=== PATIENT | female | born 1945 | race Caucasian/White ===

== ENCOUNTER 2021-11-09 13:15 | Outpatient (CLI) | payer MEDICARE, SELFPAY ==
--- NOTE | 2021-11-09 13:30 | CRLHL7_ITS ---
For Patients: As a result of the Century Cures Act, medical imaging exams and procedure reports are released immediately into your electronic medical record. You may view this report before your referring provider. If you have questions, please contact your health care provider. DXA BONE MINERAL DENSITY STUDY Current height (in): 66. Weight (lbs): 155. Menopause age: 40. Ethnicity: White. 1. Have you had a previous hip or vertebral fracture? No. 2. Have you had any fractures during your adult life which did not result from significant trauma (e.g., auto accident)? Yes. 3. Did either of your parents have a hip fracture? No. 4. Do you smoke? No. 5. Have you ever taken Glucocorticoids? No. 6. Do you have rheumatoid arthritis? No. 7. Do you have secondary osteoporosis? No. 8. Do you drink 3 or more alcoholic drinks per day? No. 9. Are you being treated for osteoporosis? No. 10. Have you ever taken any of the following medications: Actonel, Evista, Fosamax, Miacalcin, Reclast, Boniva, Forteo, HRT (i.e. estrogen/hormone therapy), Protelos, Prolia, Vitamin D, Calcium, other ??? please specify. ANSWER: Yes, Fosamax, Vitamin D, and calcium. 11. Do you have any of the following medical conditions: Anorexia or bulimia, asthma or emphysema, end stage renal disease, hyperparathyroidism, any seizure disorders, cancer, inflammatory bowel diseases, hysterectomy, other ??? please specify. ANSWER: Yes, hysterectomy. 12. What was your maximum height (inches)? 66. 13. Do you perform weight bearing exercise regularly? Yes. 14. Do you regularly consume dairy products? Yes. 15. Do you drink caffeinated beverages? No. If female: 16. At what age did your period start? 12. 17. Are you premenopausal? No. 18. How many full term pregnancies have you had? 2. 19. Have you ever missed your period for more than 6 months in a row (not including or menopause)? No. TECHNIQUE: Bone mineral density study was performed using the [employer]. FINDINGS: The results of the study expressed as bone mineral density (BMD) are as follows: Lumbar spine L1 to L4: BMD: 1.055 g/cm2. T-score: 0.1. Z-score: 2.7 Neck Left: BMD: 0.699 g/cm2. T-score: -1.3. Z-score: 0.9 Right: BMD: 0.660 g/cm2. T-score: -1.7. Z-score: 0.5 Total Left: BMD: 0.856 g/cm2. T-score: -0.7. Z-score: 1.3 Right: BMD: 0.857 g/cm2. T-score: -0.7. Z-score: 1.3 IMPRESSION: Osteopenia. *Comparison exams done prior to 07/2019 were performed on different unit, [employer]. COMPARISON: Compared with scan of 06/18/2017, the bone mineral density has increased by 0.0 percent at the spine and increased by 4.4 percent at the hip. FRAX 10-year Fracture Risk Major Osteoporotic Fracture: 20percent Hip Fracture: 4.4 percent Reported Risk Factors: [place] () Neck BMD=0.660, BMI=25.0, previous fracture Neetu Chu M.D. Diagnostic/Breast Radiologist [email or web address] SAY/gabbi seo/Dictated by: Neetu Chu MD @ 11/09/2021 4:48:00 PM (Electronically Signed)
--- NOTE | 2021-11-09 14:00 | CRLHL7_ITS ---
For Patients: As a result of the Cures Act, medical imaging exams and procedure reports are released immediately into your electronic medical record. You may view this report before your referring provider. If you have questions, please contact your health care provider. BILATERAL DIGITAL SCREENING MAMMOGRAM WITH TOMOSYNTHESIS AND COMPUTER-AIDED DETECTION CLINICAL HISTORY: Routine screening exam. COMPARISON: 09/20/2020, 09/16/2027, 12/17/2017. TECHNIQUE: Digital mammogram in CC and MLO projections including computer-aided detection (CAD). Tomosynthesis utilized. BREAST COMPOSITION: The breasts are heterogeneously dense, which may obscure small masses. FINDINGS: RIGHT Breast: No suspicious findings. LEFT Breast: Asymmetric density within the lower inner quadrant LEFT breast 6 cm from the nipple. IMPRESSION: LEFT breast asymmetry/mass. RECOMMENDATIONS: Additional mammographic views of the LEFT breast including 3D spot compression CC/MLO. LEFT breast ultrasound may also be required. The [facility] will contact the patient for follow-up. BI-RADS Category 0: Incomplete: Need Additional Imaging Evaluation and/or Prior Mammograms for Comparison A lay language report of this examination will be provided to the patient. Dictated by Westley Narayanan MD @ 11/10/2021 8:53:18 AM jj/Dictated by: Westley Narayanan MD @ 11/10/2021 8:53:00 AM (Electronically Signed)
== END 2021-11-09 13:16 | disposition home or self-care (01) ==
LOC: RAD 13:18
PROVIDERS: PCP Physician Assistant Medical; Visit Provider Physician Assistant Medical
DX: Z12.31 Encounter for screening mammogram for malignant neoplasm of breast (principal); N63.20 Unspecified lump in the left breast, unspecified quadrant; R92.2 Inconclusive mammogram; Z13.820 Encounter for screening for osteoporosis; M85.89 Other specified disorders of bone density and structure, multiple sites
CPT/HCPCS: 77063; 77067; 77080

== ENCOUNTER 2021-11-16 07:54 | Outpatient (CLI) | payer MEDICARE, SELFPAY ==
--- NOTE | 2021-11-16 07:45 | CRLHL7_ITS ---
For Patients: As a result of the Cures Act, medical imaging exams and procedure reports are released immediately into your electronic medical record. You may view this report before your referring provider. If you have questions, please contact your health care provider. DIGITAL DIAGNOSTIC LEFT MAMMOGRAM USING TOMOSYNTHESIS AND COMPUTER-AIDED DETECTION LEFT BREAST ULTRASOUND CLINICAL HISTORY: LEFT breast mass/asymmetry. COMPARISON: 11/09/2021 TECHNIQUE: Digital LEFT mammogram in 2 projections. Tomosynthesis and computer-aided detection were used. Real-time ultrasound imaging of LEFT breast with imaging documentation. Scanning was performed by both the technologist and the radiologist. BREAST COMPOSITION: The breasts are heterogeneously dense, which may obscure small masses. FINDINGS: 3D spot-compression CC and 3D spot-compression MLO LEFT breast mammogram submitted. Decreased conspicuity of previously noted density within the posterior LEFT breast lower inner quadrant. No architectural distortion or suspicious calcifications. Detail targeted LEFT breast ultrasound in the lower inner quadrant performed 2-8 cm from the nipple. Normal fibroglandular tissue noted. No evidence malignancy. No fibrocystic change. IMPRESSION: No evidence of malignancy. RECOMMENDATIONS: Annual bilateral screening mammography. Results and recommendations discussed with the patient. BI-RADS Category 2: Benign A lay language report of this examination will be provided to the patient. Dictated by Westley Narayanan MD @ 11/16/2021 8:45:11 AM PT/Dictated by: Westley Narayanan MD @ 11/16/2021 8:45:00 AM (Electronically Signed)
--- NOTE | 2021-11-16 08:15 | CRLHL7_ITS ---
For Patients: As a result of the Century Cures Act, medical imaging exams and procedure reports are released immediately into your electronic medical record. You may view this report before your referring provider. If you have questions, please contact your health care provider. PLEASE SEE LEFT DIAGNOSTIC MAMMOGRAM OF SAME DAY. CRL:porfirio PT/Dictated by: Westley Narayanan MD @ 11/16/2021 8:45:00 AM (Electronically Signed)
== END 2021-11-16 07:55 | disposition home or self-care (01) ==
LOC: MAMMO 07:54
PROVIDERS: PCP Physician Assistant Medical; Visit Provider Physician Assistant Medical
DX: N63.20 Unspecified lump in the left breast, unspecified quadrant (principal); R92.8 Other abnormal and inconclusive findings on diagnostic imaging of breast
CPT/HCPCS: 76642; 77065; G0279

== ENCOUNTER 2021-11-21 10:55 | Outpatient (CLI) | payer MEDICARE, SELFPAY ==
[2021-11-21 13:33] LABS: Albumin* 4.3 g/dL (3.3-5.0); Chloride* 102 mmol/L (96-114); Sodium* 136 mmol/L (135-149)
[2021-11-21 13:34] LABS: Potassium* 3.9 mmol/L (3.6-5.1)
[2021-11-21 13:35] LABS: Cholesterol* 177 mg/dL (90-199)
[2021-11-21 13:36] LABS: Alanine Aminotransferase* 20 U/L (4-35); Alkaline Phosphatase* 66 U/L (40-150); Aspartate Amino Transferase* 30 U/L (12-35); Bilirubin Total* 1.2 mg/dL (0.1-1.5); Blood Urea Nitrogen* 19 mg/dL (7-30); Carbon Dioxide* 26 mmol/L (20-32); Creatinine* 0.9 mg/dL (0.5-1.5); Estimated Glomerular Filt Rate 65 ml/min; Glucose* 101 mg/dL (60-115); Total Protein* 6.5 g/dL (6.0-8.3); Triglycerides* 162 mg/dL (40-149)
[2021-11-21 13:37] LABS: Calcium* 9.5 mg/dL (8.4-10.6); HDL Cholesterol* 63 mg/dL (>=50); LDL Cholesterol Calculated 82 mg/dL (<100)
== END 2021-11-21 10:56 | disposition home or self-care (01) ==
PROVIDERS: PCP Physician Assistant Medical; Visit Provider Physician Assistant Medical
DX: Z00.00 Encounter for general adult medical examination without abnormal findings (principal); E78.5 Hyperlipidemia, unspecified; I10 Essential (primary) hypertension
CPT/HCPCS: 80053; 80061; 84443

== ENCOUNTER 2022-08-30 06:30 | Day surgery (SDC) | payer MEDICARE, SELFPAY ==
[2022-08-30] VITALS (14 sets, daily range): BP systolic 112–140; BP diastolic 55–61; PULSE 43–49; RESP 12–20; TEMP 36.3–36.4; O2SAT 95–99; BMI 25.0
--- NOTE | 2022-08-30 06:52 | SUR.PREOP ---
SAME DAY SURGERY LOCAL INJECTION SITE VERIFICATION WAS PERFORMED BY SURGEON/PA AND PATIENT PRIOR TO LOCAL ANESTHETIC BEING INJECTED TO OPERATIVE SITE.
[2022-08-30] MEDS: BUPIVACAINE 0.5% 30 ML INJECTION (07:00)
[2022-08-30] MEDS: BACITRACIN OINTMENT BULK TUBE 1 APPLIC TOPICAL (08:21)
--- NOTE | 2022-08-30 11:41 | PM.ORPRC ---
Procedure Note Date of procedure: 08/30/22 Procedure: PREOPERATIVE DIAGNOSIS: 1. Right hand Dupuytren's contracture involving the small finger primarily PIP joint but extending to the MCP joint POSTOPERATIVE DIAGNOSIS: 1. Right hand Dupuytren's contracture involving the small finger primarily PIP joint but extending to the MCP joint PROCEDURE: 1. Right hand open partial palmar fasciectomy of Dupuytren's contracted tissue 2. Right small finger PIP joint manipulation under anesthesia. SURGEON: Teo Craig MD. POWER GENERATION TECHNICIAN: None. ANESTHESIA: Local anesthetic 1% lidocaine plain and 0.5% Marcaine plain-10 mL total IMPLANTS: None TOURNIQUET: None COMPLICATIONS: None evident INDICATIONS: The patient is a pleasant 77-year-old female who has experienced right hand Dupuytren's contractures primarily involving the right small finger. This has resulted in PIP joint flexion contracture of approximately 40+ degrees. Nonoperative management has been tried but unsuccessful. Given the failure of nonoperative management, and how this affects daily life, surgery was recommended. DESCRIPTION OF PROCEDURE: Following a thorough discussion of risks, benefits, and alternatives consent was obtained and the operative extremity/digit was marked. After sterile ChloraPrep prep of the right hand and sterile draping, Joce type incisions were made from the distal digital crease of the small finger to the distal palmar crease. Fasciocutaneous flaps were mobilized. Caution was taken along the ulnar border of the digit were the Dupuytren's cord was palpated. The ulnar digital nerve and artery were identified, mobilized, and protected throughout the case. The scar tissue was somewhat intertwined with the ulnar digital nerve, but again this was protected while mobilizing the scar. The scar extended from the hypothenar muscle in the ulnar part of the hand distally along the ulnar border of the digit approaching the D IP joint region. The scar was excised along the entire course EN bloc. The early part of the dissection was performed with an Esmarch wrap around the distal forearm for hemostasis. This was released mid dissection to ensure adequate identification of the ulnar digital artery and protection of this neurovascular structures throughout the case. The PIP joint remained with a 20 degree flexion contracture. Manipulation under anesthesia of the small finger PIP joint was then performed and the finger was able to achieve less than 5? of flexion contracture following this. Thorough irrigation normal saline was performed. Closure performed with interrupted simple sutures of 4-0 nylon followed by dressings and a splint to help with maintenance of extension of the PIP joint. PLAN: 1. Encourage elevation of the operative extremity. 2. Range of motion of the operative extremity/digits as tolerated. 3. Ibuprofen and/or acetaminophen as needed for pain. 4. Follow-up early next week for splint removal, OT evaluation and [employer] splint fabrication p.r.n. to help assist with small finger PIP joint extension.
== END 2022-08-30 08:52 | disposition home or self-care (01) ==
PROVIDERS: PCP Physician Assistant Medical; Visit Provider Orthopaedic Surgery Sports Medicine
PROC: (CPT 25000; principal; 2022-08-30 07:30)
DX: M72.0 Palmar fascial fibromatosis [Dupuytren] (principal)
CPT/HCPCS: 26123; A4580; J0665

== ENCOUNTER 2022-09-06 13:44 | Outpatient (RCR) | payer MEDICARE, SELFPAY ==
--- NOTE | 2022-09-06 16:42 | OT.OPOE ---
OT Outpatient Ortho Eval OT Outpatient Ortho Eval* Start: 09/05/22 18:07 Freq: Status: Active Protocol: Document 09/06/22 12:51 AMB (Rec: 09/06/22 16:39 AMB [id number]) E-signed By Nicole Salcedo, OTR/L, CLT, FISH WARDEN OT OP Ortho Eval Details Complexity Complexity Low Insurance Information Insurance Information Medicare B Outpatient History/Precautions Current Condition/Medical Diagnosis Referring Provider Christiano Mcmillan PA-C Treatment Diagnosis RUE 5th digit fasciectomy of Dupuytren's contracture Date of Onset 08/30/22 Medical Conditions HTN,Metal Implants Other Conditions PMH: (copied from ortho chart) Active Problems (Reviewed @ 10:54 by Minerva Javier ~ LAT ATC) Status post Dupuytren's fasciectomy (Acute) 6 days postoperative right hand open partial palmar fasciectomy of Dupuytren's contracture tissue, and right small finger PIP joint manipulation under anesthesia (surgery date: 08/30/2022) Z98.890 - Other specified postprocedural states (ICD-10) Closed right humeral fracture (Acute) S42.301A - Unspecified fracture of shaft of humerus, right arm, initial encounter for closed fracture (ICD-10) Trigger thumb, left thumb ( Acute) M65.312 - Trigger thumb, left thumb (ICD-10) Dupuytren's contracture of right hand (Acute) Right small finger Dupuytren's contracture 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] (ICD- 10) Hyperlipidemia (Acute 01/25/09 ) E78.5 - Hyperlipidemia, unspecified (ICD-10) Hypertension (Acute 01/25/09) I10 - Essential (primary) hypertension (ICD-10) Osteopenia (Acute) DEXA 11/10- osteopenia but declined treatment due to swallowing concerns M85.80 - Other specified disorders of bone density and structure, unspecified site ( ICD-10) Vocal cord dysfunction (Acute) J38.3 - Other diseases of vocal cords (ICD-10) Psoriasis (Acute) L40.9 - Psoriasis, unspecified (ICD-10) Hammer toe (Acute 03/08/10) M20.40 - Other hammer toe(s) ( acquired), unspecified foot ( ICD-10) Surgical History (Reviewed @ 10:54 by Minerva Javier ~ LAT ATC) Status post open reduction with internal fixation (ORIF) of fracture of ankle (1999) Z98.890 - Other specified postprocedural states (ICD-10) Z87.81 - Personal history of ( healed) traumatic fracture ( ICD-10) History of tonsillectomy (1950 ) Z90.89 - Acquired absence of other organs (ICD-10) History of hysterectomy (1985) Z90.710 - Acquired absence of both cervix and uterus (ICD-10 ) History of discectomy Z98.890 - Other specified postprocedural states (ICD-10) Medical/Functional History Medical History Reviewed Yes Ortho Subjective Subjective Subjective Pt states she is feeling pretty good, had her surgical dressing removed yesterday and will have sutures removed next week. Pt has minimal pain and is pleased at how straight her finger is. Pt states her pain is 0-1/10, mild ache in her right 5th digit. Goniometric Comments Goniometric Comments Goniometric Comments 09/06/22 Pt demonstrates full AROM in BUE with the exception of the RUE 4th and 5th digits . AROM of the RUE 5th digit MP is 0-70, PIP is -10-45, DIP is 0-10. AROM of the RUE 4th digit MP is 0-60, PIP is 0-70, DIP is 0-50. OT Problems Problems Problems Decreased Strength,Decreased Range of Motion,Decreased Dexterity,Pain,Decreased Coordination,Lifting,Gripping, Pinching Other Problems Writing,Opening Containers Patient Potential Good Assessment Assessment Assessment Pt is a very pleasant 77yo female reporting to OT 1 week s/p RUE palmar fasciectomy of Dupuytren's contracture of the 5th digit. Sutures are in place, no drainage noted, no s /s of infection. Pt demonstrates mild pain, limited ROM and weakness in the RUE. Very mild swelling is appreciated along the palmar side of her hand. Pt is currently limited in all ADLs and IADLs that require use of her RUE (dominant hand) . Pt will benefit from skilled OT intervention for custom splinting to maintain tissue integrity and flexibility / reduce risk for return of contracture as well as HEP, scar tissue management and eventually strengthening in order to restore full, pain -free use of her RUE. Occupational Therapy Treatment Plan - OP Potential Rehabilitation Potential Good Set Goals Goals Set with Patient Yes Goals Goals 1. Pt will be independent and compliant with HEP including custom splint and exs / scar management in order to resume full, pain-free use of the involved UE. 3 weeks 2. Pt will demonstrate full, pain-free AROM of the involved UE in order to improve ability to grasp and hold. 6 weeks 3. Pt will demonstrate pain- free project asst and pinch strength comparable to the uninvolved side in order to improve functional grasp, hold, reach, and lifting ability needed to complete self-care, leisure tasks, and work activities. 8 weeks. Target Date 12/07/22 Treatment Plan Treatment Plan Evaluation,Edema Control,Joint Mobilization,Manual Therapy, Splinting,Ultrasound,Wound Care/Scar Management, Therapeutic Exercise, Therapeutic Activities,Self Care/Home Management,Allergist/Immunologist Training,Education Expected Frequency 1-2x Week Expected Duration 8-10 Weeks Home Program Home Program Home Program Initiated Home Program Specifics 09/06/22 Initiated differential tendon glides. Certification Certification I Certify That: Therapy Services Provided, Therapy Plan Established, Therapy Plan Reviewed Recertification Information Recertification Information Initial Certification Date 09/06/22 Recertification Due Date 12/05/22 Reasons to Continue Skilled Therapy Initiated OT today for custom splinting as well as ROM / HEP following RUE palmar fasciectomy of Dupuytren's contracture of the 5th digit. Rehabilitation Potential Good Continued Plan of Care and Interventions Please see above. Provider Signature Shows Agreement With POC & Medical Necessity Physician Comment/Change Comment or Changes Physician NPI Number #
== END 2022-10-20 15:32 | disposition home or self-care (01) ==
PROVIDERS: PCP Physician Assistant Medical; Visit Provider Physician Assistant Surgical
DX: M72.0 Palmar fascial fibromatosis [Dupuytren] (principal); Z51.89 Encounter for other specified aftercare
CPT/HCPCS: 97165; L3913

== ENCOUNTER 2022-11-16 10:09 | Outpatient (CLI) | payer MEDICARE, SELFPAY ==
--- NOTE | 2022-11-16 10:15 | CRLHL7_ITS ---
For Patients: As a result of the Cures Act, medical imaging exams and procedure reports are released immediately into your electronic medical record. You may view this report before your referring provider. If you have questions, please contact your health care provider. BILATERAL SCREENING MAMMOGRAM WITH COMPUTER-AIDED DETECTION AND TOMOSYNTHESIS TECHNIQUE: CC and MLO views were obtained. These mammographic images have been obtained using full-field digital technique. These mammographic images were interpreted with the benefit of computer-aided detection. Breast Tomosynthesis was used in this interpretation. COMPARISON FILM: 11/09/21, 09/20/20, 09/16/19. FINDINGS: The breasts are heterogeneously dense, which may obscure small masses IMPRESSION: There is no radiographic evidence for malignancy. ASSESSMENT: BI-RADS Category 1: Negative RECOMMENDATION: Routine screening mammogram in 1 year. A lay language report of this examination will be provided to the patient. Westley Narayanan M.D. Diagnostic Radiologist [email or web address] VERONICA/viri / be/Dictated by: Westley Narayanan MD @ 11/16/2022 1:21:00 PM (Electronically Signed)
== END 2022-11-16 10:10 | disposition home or self-care (01) ==
LOC: MAMMO 10:10
PROVIDERS: PCP Physician Assistant Medical; Visit Provider Physician Assistant Medical
DX: Z12.31 Encounter for screening mammogram for malignant neoplasm of breast (principal); R92.2 Inconclusive mammogram
CPT/HCPCS: 77063; 77067

== ENCOUNTER 2022-11-23 16:07 | Outpatient (CLI) | payer MEDICARE, SELFPAY | END 2022-11-23 16:08 | disposition home or self-care (01) | PROVIDERS: PCP Physician Assistant Medical; Visit Provider Physician Assistant Medical | DX: E78.2 Mixed hyperlipidemia (principal) | CPT/HCPCS: 80053; 80061 ==

== ENCOUNTER 2023-06-06 13:00 | Outpatient (RCR) | payer MEDICARE, SELFPAY | END 2023-08-21 13:41 | disposition home or self-care (01) | PROVIDERS: PCP Physician Assistant Medical; Visit Provider Family Medicine | DX: M54.50 Low back pain, unspecified (principal); Z51.89 Encounter for other specified aftercare | CPT/HCPCS: 97012; 97032; 97110; 97140; 97161 ==

== ENCOUNTER 2023-12-11 12:18 | Outpatient (CLI) | payer MEDICARE, SELFPAY | END 2023-12-11 12:19 | disposition home or self-care (01) | PROVIDERS: PCP Physician Assistant Medical; Visit Provider Physician Assistant Medical | DX: Z00.00 Encounter for general adult medical examination without abnormal findings (principal); E78.5 Hyperlipidemia, unspecified; I10 Essential (primary) hypertension; R53.83 Other fatigue | CPT/HCPCS: 80053; 80061; 84443 ==

== ENCOUNTER 2024-06-12 13:49 | Outpatient (CLI) | payer MEDICARE, SELFPAY ==
--- NOTE | 2024-06-12 14:00 | CRLHL7_ITS ---
For Patients: As a result of the Century Cures Act, medical imaging exams and procedure reports are released immediately into your electronic medical record. You may view this report before your referring provider. If you have questions, please contact your health care provider. INDICATION: SCREENING MAMMOGRAM, ASYMPTOMATIC 78 YEAR OLD FEMALE COMPARISON: 11/16/22, 11/09/21, 09/20/20 TECHNIQUE: CC and MLO views were obtained. These mammographic images have been obtained using full-field digital technique. These mammographic images were interpreted with the benefit of computer aided detection and tomosynthesis. BREAST COMPOSITION: The breasts are heterogeneously dense, which may obscure small masses. FINDINGS: No suspicious findings. ASSESSMENT: BI-RADS 2 Benign RECOMMENDATION: Annual screening mammogram. A lay language report of this examination will be provided to the patient. Dictated by: Westley Narayanan MD @ 06/13/2024 12:43:58 (Electronically Signed)
--- NOTE | 2024-06-12 14:30 | CRLHL7_ITS ---
For Patients: As a result of the Century Cures Act, medical imaging exams and procedure reports are released immediately into your electronic medical record. You may view this report before your referring provider. If you have questions, please contact your health care provider. XR DXA Bone Mineral Density (BMD) Reason for exam: Disorder of the bone. Postmenopausal. Current height (in): 66. Weight (lb): 155. Menopause age: 40. Ethnicity: White. 1. Have you had a previous hip or vertebral fracture? No. 2. Have you had any fractures during your adult life which did not result from significant trauma (e.g., auto accident)? Yes. 3. Did either of your parents have a hip fracture? No. 4. Do you smoke? No. 5. Have you ever taken Glucocorticoids? No. 6. Do you have rheumatoid arthritis? No. 7. Do you have secondary osteoporosis? No. 8. Do you drink 3 or more alcoholic drinks per day? No. 9. Are you being treated for osteoporosis? No. 10. Have you ever taken any of the following medications: Actonel, Evista, Fosamax, Miacalcin, Reclast, Boniva, Forteo, HRT (i.e., estrogen/hormone therapy), Protelos, Prolia, Vitamin D, Calcium, other ??? please specify. ANSWER: Yes, Fosamax (i.e., alendronate) and calcium. 11. Do you have any of the following medical conditions: Anorexia or bulimia, asthma or emphysema, end stage renal disease, hyperparathyroidism, any seizure disorders, cancer, inflammatory bowel diseases, hysterectomy, other ??? please specify. ANSWER: Yes, hysterectomy. 12. What was your maximum height (inches)? 66. 13. Do you perform weight bearing exercise regularly? No. 14. Do you regularly consume dairy products? Yes. 15. Do you drink caffeinated beverages? No. 16. At what age did your period start? 12. 17. Are you premenopausal? No. 18. How many full-term pregnancies have you had? 2. 19. Have you ever missed your period for more than 6 months in a row (not including or menopause)? No. TECHNIQUE: Bone mineral density study was performed using the [employer]. FINDINGS: The results of the study expressed as bone mineral density (BMD) are as follows: Lumbar spine L1 to L4: BMD: 1.070 g/cm2. T-score: 0.2. Z-score: 2.9 Neck Left: BMD: 0.718 g/cm2. T-score: -1.2. Z-score: 1.2 Right: BMD: 0.667 g/cm2. T-score: -1.6. Z-score: 0.7 Total Left: BMD: 0.850 g/cm2. T-score: -0.8. Z-score: 1.3 Right: BMD: 0.822 g/cm2. T-score: -1.0. Z-score: 1.1 IMPRESSION: Osteopenia. *Comparison exams done prior to 07/2019 were performed on different unit, [employer] COMPARISON: Compared with scan of 11/09/2021, the bone mineral density has increased by 1.4 percent at the spine and decreased by 2.4 percent at the hip. Compared with scan of 06/18/2017, the bone mineral density has no change at 0.0 percent at the spine and increased by 4.4 percent at the hip. FRAX 10-year Fracture Risk Major Osteoporotic Fracture: 21% Hip Fracture: 4.9% Reported Risk Factors: [place] () Neck BMD=0.667, BMI=25.0, previous fracture Westley Narayanan M.D. Diagnostic Radiologist [email or web address] VERONICA/gabbi seo/Dictated by: Westley Narayanan MD @ 06/12/2024 3:26:00 PM (Electronically Signed)
== END 2024-06-12 13:50 | disposition home or self-care (01) ==
LOC: MAMMO 13:50
PROVIDERS: PCP Physician Assistant Medical; Visit Provider Physician Assistant Medical
DX: Z12.31 Encounter for screening mammogram for malignant neoplasm of breast (principal); R92.333 Mammographic heterogeneous density, bilateral breasts; M85.89 Other specified disorders of bone density and structure, multiple sites; Z78.0 Asymptomatic menopausal state
CPT/HCPCS: 77063; 77067; 77080

== ENCOUNTER 2025-01-07 08:45 | Outpatient (CLI) | payer MEDICARE, SELFPAY | END 2025-01-07 08:46 | disposition home or self-care (01) | LOC: RAD 08:47 | PROVIDERS: PCP Family Medicine; Visit Provider Internal Medicine | DX: R00.1 Bradycardia, unspecified (principal); I51.7 Cardiomegaly; I35.1 Nonrheumatic aortic (valve) insufficiency; R06.02 Shortness of breath | CPT/HCPCS: 93306 ==